=== PATIENT | female | born 1990 | race Caucasian/White ===

== ENCOUNTER 2023-09-30 08:27 | Emergency (ER) | payer BC, SELFPAY ==
[2023-09-30 08:35] VITALS: BP 144/84; PULSE 100; RESP 17; TEMP 36.8; O2SAT 98; BMI 44.9
--- NOTE | 2023-09-30 09:01 | ED_ITS ---
HPI - Back Pain/Injury General Time Seen by Provider: 09:01 Date Seen: 09/30/23 Chief Complaint: Back Injury/Pain Stated Complaint: back injury Time Seen by Provider: 09/30/23 09:00 Source: patient and RN notes reviewed Mode of arrival: ambulatory Limitations: no limitations History of Present Illness HPI Narrative: This 32-year-old female is ambulatory into the ER with complaint of low back pain that is radiating into the back of her left leg. 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 She states there is a strong family history of sciatica. She was at work just sitting at the computer yesterday, when she got up to leave, had really bad low back pain, has noted it start to radiate into the back of her left leg. She denies any trauma, she has had no fevers, no numbness or tingling, states she has normal bowel and bladder function at this time. Position changes hurt. She is lying flat in the bed right now and states she has got a little bit of an ache in her low back but this is the position of comfort for her. Any position changes, attempting to sit or walk really increase her pain. She has tried Tylenol and ibuprofen without much relief. She is not been evaluated for this prior. She states there is no chance for . MD elicited complaint: back pain Related Data Home Medications Medication Instructions Recorded Confirmed hydroxyzine HCl 25 mg tablet 25 - 50 mg PO Q6H PRN anxiety 09/30/23 09/30/23 trazodone 50 mg tablet 50 - 100 mg PO QPM 09/30/23 09/30/23 Previous Rx's Medication Instructions Recorded cyclobenzaprine 10 mg tablet 10 mg PO TID PRN muscle spasm #20 09/30/23 tabs oxycodone 5 mg tablet 5 mg PO QHS PRN pain #6 tabs 09/30/23 prednisone 20 mg tablet 20 mg PO BID #10 tabs 09/30/23 Allergies Allergy/AdvReac Type Severity Reaction Status Date / Time No Known Drug Allergies Allergy Verified 09/30/23 08:42 Review of Systems Narrative: As per HPI. PFSH PFSH Social History Smoking Status: Current every day smoker What tobacco products do you use: cigarettes Smoking packs per day: 0.5 Smoking cigarettes per day: 10.0 Second hand tobacco smoke exposure: Yes How often do you have a drink containing alcohol: 2-4 times a month How often do you have six or more drinks on one occasion: Less than monthly AUDIT-C Alcohol total score: 3 Non-prescribed substance use: denies use service: No Exam Const: Vital Signs, click to edit/add: Vital Signs - 24 hr 09/30/23 08:35 Temperature 98.3 F Pulse Rate [Right Pulse Oximeter] 100 Respiratory Rate 17 Blood Pressure [Ri ght Upper Arm] 144/84 H Pulse Oximetry 98 Oxygen Delivery Me thod Room Air This patient is alert, interactive, no apparent distress lying flat in the exam room on the ER bed. Sclera clear, able to speak in complete sentences. She is able to do leg lifting off the bed, starts to have pain when I a passively lift her leg beyond 30? on the left side, she does have some reciprocal change when I lift her right leg but is able to go much higher on the right side. She is feeling pain in the low back with the straight leg raise, does not seem to precipitate radiculopathy. Independently she does demonstrate that she can lift each leg off the bed and hold it as far as strength testing. Strength throughout both extremities is 5/5 on testing. There is no lower extremity erythema or swelling. She has good peripheral pulses that are symmetric, normal light touch sensation bilaterally. No midline tenderness of her spine, is able to roll onto her right side without too much difficulty. No significant paraspinous tenderness. Documenting provider has reviewed patient's vital signs: yes Course Course ED Course: Patient and I did discuss smoking, recommendations for smoking cessation were made. As far as pain management, will try 30 mg IM Toradol here and give her a dose of Flexeril 10 mg orally. We discussed management of back pain, there certainly seems to be mild feature of radiculopathy on the left side. There are no warning signs right now. We discussed imaging, she certainly does not warrant an MRI at this time and did review the rationale for that. As far as plain films, did review with her that they can give in idea if there is underlying degenerative disease of the spine, loss of disc space height. She states her insurance does not cover imaging out of the ER, would prefer to not do this. I think given her clinical examination her history that it is fine to forego any playing x-ray images of her back. This certainly could be done in follow-up in clinic. We did discuss warning signs and symptoms with radiculopathy. Plan will be for outpatient management, will give her physical therapy referral and a note to be off for the next 2 days. Vital Signs Vital signs: Initial Vital Signs Temperature 98.3 F 09/30/23 08:35 Temperature Source Temporal Artery Scan 09/30/23 08:35 Pulse Rate 100 09/30/23 08:35 Pulse Rhythm Regular 09/30/23 08:35 Respiratory Rate 17 09/30/23 08:35 Blood Pressure 144/84 H 09/30/23 08:35 Blood Pressure Mean 104 09/30/23 08:35 Blood Pressure Position Sitting 09/30/23 08:35 Pulse Oximetry 98 09/30/23 08:35 Oxygen Delivery Method Room Air 09/30/23 08:35 Vital Signs Temperature 98.3 F 09/30/23 08:35 Pulse Rate 100 09/30/23 08:35 Respiratory Rate 17 09/30/23 08:35 Blood Pressure 144/84 H 09/30/23 08:35 Pulse Oximetry 98 09/30/23 08:35 Oxygen Delivery Method Room Air 09/30/23 08:35 Temperature 98.3 F 09/30/23 08:35 Pulse Rate 100 09/30/23 08:35 Respiratory Rate 17 09/30/23 08:35 Blood Pressure 144/84 H 09/30/23 08:35 Pulse Oximetry 98 09/30/23 08:35 Oxygen Delivery Method Room Air 09/30/23 08:35 Medications Administered Medications: Discontinued Medications Generic Name Dose Route Start Last Admin Trade Name Freq PRN Reason Stop Dose Admin Cyclobenzaprine HCl 10 mg 09/30/23 09:13 09/30/23 09:19 Cyclobenzaprine Hcl 10 Mg Tablet PO 09/30/23 09:14 10 mg ONCE ONE Administration Ketorolac Tromethamine 30 mg 09/30/23 09:13 09/30/23 09:21 Ketorolac 30 Mg/Ml Inj IM 09/30/23 09:14 30 mg ONCE ONE Administration Discharge Plan Discharge Clinical Impression: Lumbar radiculopathy Patient Disposition: Home, Self-Care Condition: Stable Instructions: Lumbar Radiculopathy (ED), Back Pain (ED) Additional Instructions: Start prednisone as soon as possible, take as prescribed, recommend taking with food to protect her stomach. Can continue with Tylenol and ibuprofen per bottle directions as needed for pain management. Have written for a muscle relaxant F lexeril, take as prescribed. This can be sedating, do not recommend driving or operating machinery while on this. Have written for few narcotic pain pills oxycodone, recommend taking this only at bedtime to help you sleep. Referral for physical therapy has been provided, recommend you call to get this scheduled. Follow-up with your primary care provider within the next 1-2 weeks or sooner if needed. Review handout, if there are any changes in her symptoms that warrant emergent re-evaluation as outlined in the handout, recommend you do so. Activity Level: Activity as Tolerated Prescriptions: New prednisone 20 mg tablet 20 mg PO BID Qty: 10 0RF cyclobenzaprine 10 mg tablet 10 mg PO TID PRN (Reason: muscle spasm) Qty: 20 0RF oxycodone 5 mg tablet 5 mg PO QHS PRN (Reason: pain) Qty: 6 0RF No Action trazodone 50 mg tablet 50 - 100 mg PO QPM hydroxyzine HCl 25 mg tablet 25 - 50 mg PO Q6H PRN (Reason: anxiety) Stand Alone Forms: MyHealth Info Instructions
[2023-09-30] MEDS: CYCLOBENZAPRINE HCL 10 MG TABLET PO (09:19)
[2023-09-30] MEDS: KETOROLAC 30 MG/ML inj IM (09:21)
== END 2023-09-30 09:38 | disposition home or self-care (01) ==
PROVIDERS: Emergency Provider Family Medicine
DX: M54.16 Radiculopathy, lumbar region (principal)
CPT/HCPCS: 96372; 99283; 99284; A9270; J1885